=== PATIENT | male | born 1970 | race Caucasian/White ===

== ENCOUNTER 2017-06-10 15:30 | Emergency (ER) | payer SELFPAY ==
[~2017-06-10] VITALS: Ht 182.9 cm; Wt 98.6 kg
[2017-06-10 18:20] VITALS: BP 139/93
== END 2017-06-10 18:20 | disposition home or self-care (01) ==
LOC: ED 15:30
DX: F41.9 Anxiety disorder, unspecified (principal); R07.9 Chest pain, unspecified; I10 Essential (primary) hypertension